=== PATIENT | female | born 1970 | race Caucasian/White ===

== ENCOUNTER → 2019-06-16 13:53 | Outpatient (CLI) | payer BC, OTHER, SELFPAY ==
--- NOTE | ~2019-06-16 | MR_ITS ---
EXAMINATION: MR lumbar spine wo con EXAM DATE: 06/16/2019 14:26 INDICATION: Low back pain. Right leg pain. TECHNIQUE: Multi-sequential, multiplanar MR images of the lumbar spine were obtained without contrast . Sagittal T1, T2, T2 fat saturation images. Axial T2 weighted images. There is no prior study for comparison. FINDINGS: There is moderate loss of the L2-3 and L4-5 disc heights, mild at L3-4 and L5-S1. The conus medullaris terminates at the L1 level and has normal signal intensity and morphology. Paraspinal so ft tissue is unremarkable. Mild lumbar levoscoliosis. The vertebral bodies are aligned in the AP dime nsion. There are no suspicious marrow signal abnormalities. Level by level evaluation: T12-L1: Disc does not extend beyond the endplate margin. Facet arthropathy: Minimal. Neural foraminal stenosis: No stenosis. Central canal stenosis: No stenosis. L1-L2: Disc does not extend beyond the endplate margin. Facet arthropathy: Minimal. Neural foraminal stenosis: No stenosis. Central canal stenosis: No stenosis. L2-L3: There is a moderate diffuse disc bulge. Facet arthropathy: Mild. Neural foraminal stenosis: Mild bilateral. Central canal stenosis: Mild. L3-L4: There is a mild to moderate diffuse disc bulge. Facet arthropathy: Mild. Neural foraminal stenosis: Mild bilateral. Central canal stenosis: Mild. L4-L5: There is a mild to moderate diffuse disc bulge. Facet arthropathy: Mild. Neural foraminal stenosis: Moderate left, mild to moderate right. Central canal stenosis: Mild. L5-S1: There is a mild diffuse disc bulge. Facet arthropathy: Mild. Neural foraminal stenosis: Mild bilateral. Central canal stenosis: No stenosis. IMPRESSION: 1. [id number] lumbar spondylosis as detailed above. 2. Mild levoscoliosis. Reviewed, dictated and finalized at location A. EHOLD WORKER IMPRESSION: 1. [id number] lumbar spondylosis as detailed above. 2. Mild levoscoliosis.
== END ==
PROVIDERS: PCP Family Medicine; Visit Provider Family Medicine
DX: M47.896 Other spondylosis, lumbar region (principal)
CPT/HCPCS: 72148

== ENCOUNTER 2020-04-18 12:54 | Outpatient (NON) | payer BC, OTHER, SELFPAY ==
[2020-04-19 17:42] LABS: SARS-CoV-2 RNA PCR Negative
== END 2020-04-18 12:55 ==
LOC: ANHCOVIDDT 13:01
PROVIDERS: PCP Family Medicine; Visit Provider Physician Assistant
DX: R05 Cough (principal); Z20.822 Contact with and (suspected) exposure to COVID-19
CPT/HCPCS: C9803; U0003

== ENCOUNTER → 2020-12-29 08:59 | Outpatient (CLI) | payer OTHER, SELFPAY ==
[2020-12-29 19:39] LABS: SARS-CoV-2 RNA PCR Negative
== END ==
PROVIDERS: PCP Family Medicine; Visit Provider Family Medicine
DX: R68.89 Other general symptoms and signs (principal); Z20.822 Contact with and (suspected) exposure to COVID-19
CPT/HCPCS: C9803; U0003; U0005

== ENCOUNTER → 2021-03-23 11:32 | Outpatient (CLI) | payer OTHER, SELFPAY ==
--- NOTE | ~2021-03-23 | US_ITS ---
EXAMINATION: US thyroid DATE: 03/23/2021 12:14 INDICATION: Nontoxic single thyroid nodule TECHNIQUE: Multiple ultrasound images of the thyroid were obtained. COMPARISON: 03/03/2018 FINDINGS: The right thyroid lobe measures 4.0 x 1.4 x 1.5 cm. The left thyroid lobe measures 4.2 x 1.2 x 1.7 c m. No significant interval change in subcentimeter hypoechoic nodules which are wider than tall with either smooth or ill-defined margins (TI-RADS 4, moderately suspicious , FNA if >=1.5 cm, annual fol lowup is >=1 cm), one in the right thyroid lobe measuring 6 mm in maximal diameter and 2 in the left thyroid lobe measuring 6 mm and 4 mm in maximal diameters. There is normal echotexture, echogenicity and vascular flow throughout the thyroid gland. IMPRESSION: 1. No interval change in a few subcentimeter bilateral thyroid nodules which remain below threshold c riteria for either biopsy or follow-up. Reviewed, dictated and finalized at location B. TROLYSIS INVESTIGATOR IMPRESSION: 1. No interval change in a few subcentimeter bilateral thyroid nodules which re main below threshold criteria for either biopsy or follow-up.
== END ==
PROVIDERS: PCP Family Medicine; Visit Provider Physician Assistant
DX: E04.1 Nontoxic single thyroid nodule (principal)
CPT/HCPCS: 76536

== ENCOUNTER → 2021-05-04 09:59 | Outpatient (CLI) | payer OTHER, SELFPAY ==
--- NOTE | ~2021-05-04 | MM_ITS ---
EXAMINATION: MM screening [facility] BI w kristopher HISTORY: Screening TECHNIQUE: Craniocaudal and mediolateral oblique 3-D tomosynthesis images were obtained and synthetic 2-D images were generated. CAD analysis was submitted and interpreted. COMPARISON: No prior mammogram is available for comparison at this institution. BREAST PARENCHYMAL COMPOSITION: There are scattered areas of fibroglandular density. FINDINGS: There is no evidence of suspicious mass, calcification, or architectural distortion to sugg est malignancy in either breast. There has been no suspicious interval change. IMPRESSION: 1. No mammographic evidence of malignancy. 2. Recommend routine screening mammography in one year. BI-RADS Category 1: Negative Reviewed, dictated and finalized at location A. MS COLLECTOR
== END ==
PROVIDERS: PCP Family Medicine; Visit Provider Physician Assistant
DX: Z12.31 Encounter for screening mammogram for malignant neoplasm of breast (principal)
CPT/HCPCS: 77063; 77067

== ENCOUNTER → 2021-05-09 01:45 | Outpatient (CLI) | payer OTHER, SELFPAY ==
[2021-05-09 12:47] LABS: Influenza A QL RT-PCR Negative (Negative); Influenza B QL RT-PCR Negative (Negative); SARS-CoV-2 RNA PCR Negative
== END ==
PROVIDERS: PCP Family Medicine; Visit Provider Family Medicine
DX: J06.9 Acute upper respiratory infection, unspecified (principal); Z20.822 Contact with and (suspected) exposure to COVID-19
CPT/HCPCS: 87502; C9803; U0003; U0005

== ENCOUNTER 2021-11-30 09:44 | Outpatient (CLI) | payer OTHER, SELFPAY ==
--- NOTE | ~2021-11-30 | XR_ITS ---
XR cervical spine 4-5V 11/30/2021 10:08 Indication: Right-sided neck pain for 6 weeks Procedure: 4 views of the cervical spine Comparison: No prior studies for comparison. Findings: Vertebral body heights are maintained. No fracture, subluxation or dislocation. No preverte bral soft tissue swelling. Odontoid process is normal. Lung apices are normal. Uncinate and facet alexys nts are within normal limits. Impression: 1: No significant abnormality of the cervical spine. Reviewed, dictated and finalized at location B. Impression: 1: No significant abnormality of the cervical spine.
--- NOTE | 2021-11-30 10:12 | ECG_ITS ---
Measurements Intervals [place] Rate: 97 P: 52 IL: 142 QRS: 17 QRSD: 78 T: 44 QT: 330 QTc: 420 Interpretive Statements SINUS RHYTHM WITH OCCASIONAL VENTRICULAR PREMATURE COMPLEXES OTHERWISE WITHIN NORMAL LIMITS NO PREVIOUS ECG AVAILABLE FOR COMPARISON Electronically Signed On 11-30-2021 12:05:14 CDT by Charlie Barclay M.D.
== END 2021-11-30 09:45 | disposition home or self-care (01) ==
PROVIDERS: PCP Family Medicine; Visit Provider Physician Assistant Medical
DX: R00.2 Palpitations (principal); M79.2 Neuralgia and neuritis, unspecified
CPT/HCPCS: 72050; 93005